=== PATIENT | female | born 1990 | race Asian ===

== ENCOUNTER 2018-11-25 16:32 | Emergency (ER) | payer MEDICAID, OTHER ==
[~2018-11-25] VITALS: Ht 170.2 cm; Wt 61.2 kg
[2018-11-25 16:52] VITALS: BP 121/65
[2018-11-25] MEDS ORDERED: BACLOFEN 10 MG TAB PO ONE (20:30)
[2018-11-25] MEDS ORDERED: HYDROcodone-ACET 10/325MG TAB PO ONE (20:30)
== END 2018-11-25 21:04 | disposition home or self-care (01) ==
LOC: ER 16:46
DX: S16.1XXA Strain of muscle, fascia and tendon at neck level, initial encounter (principal); S00.83XA Contusion of other part of head, initial encounter; V00.311A Fall from snowboard, initial encounter; Y93.23 Activity, snow (alpine) (downhill) skiing, snowboarding, sledding, tobogganing and snow tubing; Y92.89 Other specified places as the place of occurrence of the external cause; Y99.8 Other external cause status
CPT/HCPCS: 70450; 81025

== ENCOUNTER 2018-12-04 21:57 | Emergency (ER) | payer MEDICAID ==
[~2018-12-04] VITALS: Ht 170.2 cm; Wt 61.2 kg
[2018-12-04] MEDS ORDERED: ONDANSETRON HCL 4 MG/2 ML VIAL IV ONE (22:45)
[2018-12-04] MEDS ORDERED: cefTRIAXone 1GM/50ML D5W 50 ML IV ONE (22:45)
[2018-12-04] MEDS ORDERED: MORPHINE SULFATE 4 MG/ML SYR/VIAL IV ONE (22:45)
[2018-12-04] MEDS ORDERED: SODIUM CHLORIDE 0.9% 1,000 ML IV ONE (22:45)
[2018-12-05 00:30] VITALS: BP 124/79
[2018-12-05] MEDS: NEOMYCIN-BACITRACIN-POLYM UNITDOSE PKG TOP OINT TOP ONE ×2 (01:25→01:40)
== END 2018-12-05 02:04 | disposition home or self-care (01) ==
LOC: ER 21:57
DX: T24.211A Burn of second degree of right thigh, initial encounter (principal); T21.22XA Burn of second degree of abdominal wall, initial encounter; T31.0 Burns involving less than 10% of body surface; X11.8XXA Contact with other hot tap-water, initial encounter; Y93.89 Activity, other specified; Y92.098 Other place in other non-institutional residence as the place of occurrence of the external cause; Y99.8 Other external cause status
CPT/HCPCS: 16020; 96365; 96375; 99284; J0696; J2270; J2405; J7030

== ENCOUNTER 2019-04-16 16:20 | Emergency (ER) | payer MEDICAID ==
[~2019-04-16] VITALS: Ht 170.2 cm; Wt 61.2 kg
[2019-04-16 17:19] VITALS: BP 113/68
== END 2019-04-16 17:45 | disposition home or self-care (01) ==
LOC: ER 16:20
DX: R51 Headache (principal)
CPT/HCPCS: 70450

== ENCOUNTER 2019-05-14 15:35 | Emergency (ER) | payer MEDICAID ==
[2019-05-14 15:59] VITALS: BP 132/75
== END 2019-05-14 17:33 | disposition left against medical advice (07) ==
LOC: ER 15:35
DX: R07.81 Pleurodynia (principal); Z53.21 Procedure and treatment not carried out due to patient leaving prior to being seen by health care provider
CPT/HCPCS: 71101